=== PATIENT | female | born 1940 | race Caucasian/White ===

== ENCOUNTER 2023-09-16 14:57 | Emergency (ER) | payer OTHER, SELFPAY ==
[2023-09-16] VITALS (7 sets, daily range): BP systolic 113–165; BP diastolic 68–87; PULSE 70–80; BMI 29.7
--- NOTE | 2023-09-16 15:22 | ED.GENMED ---
History of Present Illness
<Amy Izquierdo PA-C - Last Filed: 09/16/23 19:10>
General
Chief Complaint: Head Injury
Source: patient
Exam Limitations: none
Time Seen by Provider: 09/16/23 15:14
Nursing documentation reviewed up to this point in time: agreed with
Travel History
Have you had any contact with someone who has COVID-19?: No
Do you have any symptoms of coronavirus? Fever > 100 degrees, chills, cough, shortness of breath, sore throat, loss of taste or smell, muscle aches, or headache?: No
History of Present Illness
History of Present Illness:
This is a 83-year-old female with past medical history of hypertension, hyperlipidemia presenting to the emergency department today with concerns of syncope and collapse. Patient states that she was standing in her kitchen today when she started to
feel a bit dizzy and lightheaded, and the next thing she remembers is waking up on the floor. Patient states that she immediately called her neighbor to come over to be with her. This fall was unwitnessed. Patient states that when she woke up,
she noted a throbbing headache. Patient denies any pain anywhere else. Patient does note that she had a spinal injection today for her chronic back pain. Patient denies any further episodes of dizziness while here in the ER. Patient states that
she does have a history of dizziness from time to time but she states that it will resolve within a few seconds and she is never lost consciousness because of it. Patient denies any cardiac history, denies any history of A-fib or any other
arrhythmias. Patient denies any difficulty walking, she states that she was able to get up after the accident.
Past History
<Amy Izquierdo PA-C - Last Filed: 09/16/23 19:10>
Past History
ED Past Medical History: HTN
ED Past Surgical History: None
Social History
Tobacco: Non-smoker
Alcohol: None
Drug: None
Personal:
Living: alone
Employment: Retired
Review of Systems
<Amy Izquierdo PA-C - Last Filed: 09/16/23 19:10>
Review of Systems
All Other Systems: ROS reviewed and negative except as documented in HPI and ROS
Phy Exam
<Amy Izquierdo PA-C - Last Filed: 09/16/23 19:10>
Physical Exam
Physical Exam:
General: Patient is well appearing and in no acute distress; non-toxic
Skin: There is a large area of ecchymosis over the right frontal bone, with palpable hematoma
Head: Normocephalic, see above. Patient has no tenderness to palpation of the facial bones, no palpable step-offs or fractures.
Eyes: Sclera non-icteric. EOMs intact. PERRLA, no entrapment.
Ears: No hemotympanum bilaterally
Cardiac: Regular rate and rhythm, no tenderness palpation of the external chest wall
Peripheral Vascular: No lower extremity swelling or edema
Pulm: Normal respiratory effort
Abdomen: No abdominal tenderness to palpation, no ecchymosis, no signs of trauma
Musculoskeletal: Full range of motion bilateral upper and lower extremities, 5 out of 5 strength. No bony tenderness palpation of bilateral upper and lower extremities.
Neuro: CN II-XII intact, no focal neurologic deficits.
Psychiatric: Appropriate mood and affect.
Course
<Amy Izquierdo PA-C - Last Filed: 09/16/23 19:10>
Orders/Labs/Results
Orders:
Orders
09/16/23 15:04
EKG [Electrocardiogram (*1)] Urgent
Reason for Study: Syncope
EKG- Treatment ONCE
09/16/23 15:41
CT Cervical Spine W/o Iv Contr Urgent
Comment:
Reason For Exam: neck pain following fall
CT Head W/o Iv Contrast Urgent
Comment:
Reason For Exam: syncope and collapse, head trauma
09/16/23 15:58
Complete Blood Count/With Diff Urgent
Comprehensive Metabolic Panel Urgent
09/16/23 16:26
Cardiac Monitoring- Treatment ONCE
09/16/23 18:13
Urinalysis Reflex To Culture Urgent
Date Specimen was Collected: 09/16/23
Time Specimen was Collected: 18:11
09/16/23 18:32
Orthostatic VS- Treatment ONCE
Abnormal Lab Results
09/16/23
15:58
WBC 15.8 H 10^3/uL
(4.8-10.8)
MCH 26.8 L pg
(27.0-31.0)
MCHC 31.9 L g/dL
(33.0-37.0)
MPV 12.6 H fL
(7.4-10.4)
Abs Immat Gran (auto) 0.1 H 10^3/uL
(0-0.05)
Absolute Neuts (auto) 13.8 H 10^3/uL
(1.4-6.5)
Absolute Lymphs (auto) 1.1 L 10^3/uL
(1.2-3.4)
Absolute Monos (auto) 0.7 H 10^3/uL
(0.1-0.6)
Immature Gran % 0.6 H %
(0-0.5)
Neutrophils % 87.5 H %
(42.2-75.2)
Lymphocytes % 7.2 L %
(20.5-51.1)
BUN 21 H mg/dl
(7-17)
Creatinine 0.5 L mg/dL
(0.6-1.0)
Glucose 120 H mg/dl
(70-99)
09/16/23 15:58
09/16/23 15:58
Vital Signs
Initial and Last Documented VS:
Initial Vital Signs
Temp Pulse Resp BP Pulse Ox
97.8 F 72 18 145/68 94
09/16/23 14:59 09/16/23 14:59 09/16/23 14:59 09/16/23 14:59 09/16/23 14:59
Last Documented Vital Signs
Temp Pulse Resp BP Pulse Ox
97.8 F 75 20 155/78 91
09/16/23 14:59 09/16/23 18:45 09/16/23 18:45 09/16/23 18:41 09/16/23 18:45
<Dom Hobson, DO - Last Filed: 09/16/23 20:34>
Orders/Labs/Results
Orders:
Orders
09/16/23 15:04
EKG [Electrocardiogram (*1)] Urgent
Reason for Study: Syncope
EKG- Treatment ONCE
09/16/23 15:41
CT Cervical Spine W/o Iv Contr Urgent
Comment:
Reason For Exam: neck pain following fall
CT Head W/o Iv Contrast Urgent
Comment:
Reason For Exam: syncope and collapse, head trauma
09/16/23 15:58
Complete Blood Count/With Diff Urgent
Comprehensive Metabolic Panel Urgent
09/16/23 16:26
Cardiac Monitoring- Treatment ONCE
09/16/23 18:13
Urinalysis Reflex To Culture Urgent
Date Specimen was Collected: 09/16/23
Time Specimen was Collected: 18:11
09/16/23 18:32
Orthostatic VS- Treatment ONCE
Abnormal Lab Results
09/16/23
15:58
WBC 15.8 H 10^3/uL
(4.8-10.8)
MCH 26.8 L pg
(27.0-31.0)
MCHC 31.9 L g/dL
(33.0-37.0)
MPV 12.6 H fL
(7.4-10.4)
Abs Immat Gran (auto) 0.1 H 10^3/uL
(0-0.05)
Absolute Neuts (auto) 13.8 H 10^3/uL
(1.4-6.5)
Absolute Lymphs (auto) 1.1 L 10^3/uL
(1.2-3.4)
Absolute Monos (auto) 0.7 H 10^3/uL
(0.1-0.6)
Immature Gran % 0.6 H %
(0-0.5)
Neutrophils % 87.5 H %
(42.2-75.2)
Lymphocytes % 7.2 L %
(20.5-51.1)
BUN 21 H mg/dl
(7-17)
Creatinine 0.5 L mg/dL
(0.6-1.0)
Glucose 120 H mg/dl
(70-99)
09/16/23 15:58
09/16/23 15:58
Vital Signs
Initial and Last Documented VS:
Initial Vital Signs
Temp Pulse Resp BP Pulse Ox
97.8 F 72 18 145/68 94
09/16/23 14:59 09/16/23 14:59 09/16/23 14:59 09/16/23 14:59 09/16/23 14:59
Last Documented Vital Signs
Temp Pulse Resp BP Pulse Ox
97.8 F 75 20 155/78 91
09/16/23 14:59 09/16/23 18:45 09/16/23 18:45 09/16/23 18:41 09/16/23 18:45
<Amy Izquierdo PA-C - Last Filed: 09/16/23 19:10>
MDM/Problems Addressed
Differential Diagnosis Includes:
Differentials include epidural hematoma, subarachnoid hemorrhage, intraparenchymal bleed, skull fracture, concussion, vasovagal syncope, hypoglycemia, dysrhythmia,
MDM/Problems Addressed:
Headache, head trauma:
This is a 83-year-old female with past medical history of hypertension, hyperlipidemia presenting to the emergency department today with concerns of syncope and collapse. Patient denies any chest pain prior to the fall. Patient states that she did
have some dizziness and lightheadedness and the thing she remembers is waking up on the floor. Patient noted pounding headache upon awakening. Here in emergency department, she does have a large hematoma on the right frontal scalp but no other
obvious signs of trauma. Patient does not take a blood thinner. Patient's vitals have been stable here in emergency department, her EKG demonstrates normal sinus rhythm with no ischemic changes, no abnormal rhythms noted on the monitor, no
electrolyte derangements. Did note elevated white count which prompted us to check a urinalysis which was negative. Patient orthostatics were negative. Considering no clear cause of patient's symptoms at this time, we did offer admission, however
patient would rather follow-up as outpatient and monitor her symptoms at home. Patient stable for discharge at this point.
Chronic conditions affecting care:
Hypertension, hyperlipidemia, GERD, anxiety
<Amy Izquierdo PA-C - Last Filed: 09/16/23 19:10>
*Critical Care Note
Total Time (30-74mins, 75-104mins- exclusive of procedures): Not Applicable
<Amy Izquierdo PA-C - Last Filed: 09/16/23 19:10>
Patient Management
Social determinants of health affecting care: Strong social support
Escalation/DeEscalation of care consider admission/obs:
Considering there is no cause for the patient's syncopal episode at this time, I did discuss admission overnight with patient for further observation. Patient adamantly requesting to go home. Considering patient has a stable gait, has had no
further episodes of dizziness while here in the emergency department, her vitals have been persistently stable, and her CT scans are negative, I think this is a reasonable plan. I did discuss importance of outpatient follow-up with her primary to
reassess her symptoms. Patient states that she will follow-up and is in agreement with this plan.
ED Attending Note
<Amy Izquierdo PA-C - Last Filed: 09/16/23 19:10>
-
Portions of this chart may have been created with voice recognition software.� Occasional wrong word or��sound alike� substitutions may have occurred due to the inherent limitations of voice recognition software.
<Dom Hobson DO - Last Filed: 09/16/23 20:34>
ED Attending Note
Patient seen and examined by attending physician: Yes
I performed the substantive portion of visit, reviewed & personally made and approve the management plan that is documented in note by myself or LATA.: Yes
ED Attending Note:
81-year-old female who states she felt dizzy and
No she found self on the floor. She did hit her head. She did have a back injection recently epidural. The patient states that that has been doing okay and she is not really sure why this happened today. She has had vertigo in the past. She
does have a mild headache. No nausea or vomiting. No vision changes. No motor exam: Awake and alert, nonfocal exam, right frontal contusion noted to the forehead. Assessment and plan: EKG, labs, CT. Consider admission. ED workup grossly
unremarkable. Patient was offered admission/observation with telemetry but does not want to at this time.
Discharge Plan
Departure
Patient Disposition: Home (Routine Discharge)
Date of Disposition: 09/16/23
Time of Disposition: 18:53
Patient with high blood pressure during this ER visit?: Yes
Condition: Good
Discharge Problem:
Syncope, Acute head trauma
Instructions: Concussion, Adult (DC), Head injury in adults, BLOOD PRESSURE
Prescriptions:
No Action
cephalexin 500 MG tablet
500 mg PO QID 7 Days Qty: 28 0RF
Referrals:
June Joyce CRNP [Family Provider] -
Activity Restrictions/Additional Instructions:
Please continue to monitor your symptoms. Please follow-up with your primary care provider in a few days for reassessment of your fainting spell.
Your CT of your head did not show any intracranial abnormalities. Your CT of your cervical spine did not show any new findings or fractures.
Please stay well rested and avoid activities that exacerbate your symptoms.
For your pain, you can take one 325 mg tablet of acetaminophen, you can increase this up to 1 g every 4-6 hours as needed. Please do not exceed 4 g in a day, or 1 g in a single dose.
Please return to the emergency department should your headache not go away, should you experience persistent nausea and vomiting, change experience any confusion, restlessness or agitation, any slurred speech, weakness, numbness, decreased
coordination's, seizure-like activity, chest pain, shortness of breath, or further syncopal episodes.
Interventions
Interventions:
*Risk Screen - Suicide Last Done: 09/16/23 14:59
*General Assessment Last Done: 09/16/23 14:59
*Neglect/Abuse Screening Last Done: 09/16/23 15:48
ED- Fall Risk Assessment Last Done: 09/16/23 15:48
*ED COVID-19 Vaccine History Last Done: 09/16/23 15:48
*Nursing Disposition Last Done: 09/16/23 19:33
ED- Neurological Assessment Last Done: 09/16/23 15:48
ED-Skin Assessment Last Done: 09/16/23 15:48
Discharge Date and Time
Discharge Date/Time: 09/16/23 19:34
Print Language: [id number]
[2023-09-16 16:18] LABS: % Basophils 0.1 % (0-2); % Immature Granulocytes 0.6 % (0-0.5); % Lymphocytes 7.2 % (20.5-51.1); % Monocytes 4.6 % (1.7-9.3); % Neutrophils 87.5 % (42.2-75.2); Absolute Immature Granulocytes 0.1 10^3/uL (0-0.05); Absolute Lymphocytes 1.1 10^3/uL (1.2-3.4); Absolute Monocytes 0.7 10^3/uL (0.1-0.6); Absolute Neutrophils 13.8 10^3/uL (1.4-6.5); Hematocrit 37.6 % (37.0-47.0); Mean Corp Hgb Conc. 31.9 g/dL (33.0-37.0); Mean Corpuscular Hgb 26.8 pg (27.0-31.0); Mean Corpuscular Volume 84.1 fL (81.0-99.0); Mean Platelet Volume 12.6 fL (7.4-10.4); Nucleated Red Blood Cells % 0 %; Platelet Count 239 10^3/uL (130-400); Red Blood Cell Count 4.47 10^6/uL (4.20-5.40); Red Cell Dist. Width 13.8 % (11.5-14.5); White Blood Cell Count 15.8 10^3/uL (4.8-10.8)
[2023-09-16 16:36] LABS: ALT (SGPT) 27 U/L (0-35); AST (SGOT) 33 U/L (14-36); Albumin 4.2 g/dl (3.5-5.0); Alkaline Phosphatase 81 U/L (38-126); Blood Urea Nitrogen 21 mg/dl (7-17); Calcium 9.7 mg/dl (8.4-10.2); Carbon Dioxide 23 mmol/L (22-30); Chloride 104 mmol/L (98-107); Estimated Creatinine Clearance 63 ml/min; Glucose 120 mg/dl (70-99); Potassium 4.3 mmol/L (3.5-5.1); Sodium 137 mmol/L (135-145); Total Bilirubin 0.4 mg/dl (0.2-1.3); Total Protein 6.5 g/dl (6.3-8.2); eGFR > 60.00
[2023-09-16 18:21] LABS: Urine Albumin Negative (Neg - Trace); Urine Bilirubin Negative (Negative); Urine Character Clear (Clear); Urine Color Yellow; Urine Glucose Negative (Negative); Urine Ketone Negative (Negative); Urine Leukocyte Negative (Negative); Urine Nitrite Negative (Negative); Urine Occult Blood Negative (Negative); Urine Urobilinogen Negative (Neg - 1+)
== END 2023-09-16 19:34 | disposition home or self-care (01) ==
LOC: EMR 14:57
PROVIDERS: Physician Assistant; EMERGENCY PHYSICIAN Emergency Medicine; FAMILY PHYSICIAN Nurse Practitioner Adult Health
DX: R55 Syncope and collapse (principal); S09.90XA Unspecified injury of head, initial encounter; X58.XXXA Exposure to other specified factors, initial encounter; I10 Essential (primary) hypertension; E78.5 Hyperlipidemia, unspecified; F41.9 Anxiety disorder, unspecified; G89.29 Other chronic pain; K21.9 Gastro-esophageal reflux disease without esophagitis
CPT/HCPCS: 99284; 70450; 72125; 80053; 81003; 85025; 93005